=== PATIENT | female | born 1990 | race Caucasian/White ===

== ENCOUNTER 2016-10-07 02:42 | Emergency (ER) | payer SELFPAY ==
[2016-10-07 02:50] VITALS: BP 132/78
[2016-10-07] MEDS ORDERED: CYCLOBENZAPRINE HCL 10 MG TABLET PO ONE (03:06)
[2016-10-07] MEDS ORDERED: KETOROLAC TROMETHAMINE 60 MG/2 ML SDV IM ONE (03:06)
--- NOTE | 2016-10-07 03:10 | ER Document Report ---
ED General - General Chief Complaint: Low Back Pain Stated Complaint: BACK PAIN Notes: 26-year-old female presents with 2 days of vague lower back pain followed by an acute onset episode tonight in the middle the night going to the bathroom, mid lower back worse with movement. No radiation. No neuro symptoms. Not like her prior kidney stones. No fever no chills. Took Excedrin and came to the ED. TRAVEL OUTSIDE OF THE [place] IN LAST 30 DAYS: No - Related Data Allergies/Adverse Reactions: hydrocodone bitartrate [From Vicodin] Allergy (Intermediate, Verified 02/03/13 18:54) Hives codeine [Codeine] Adverse Reaction (Verified 06/02/13 06:29) Past Medical History - General Information source: Patient - Social History Smoking Status: Current Some Day Smoker Family History: None Patient has suicidal ideation: No Patient has homicidal ideation: No - Past Medical History Cardiac Medical History: Denies: Hx Heart Attack, Hx Hypertension Pulmonary Medical History: Denies: Hx Asthma Neurological Medical History: Denies: Hx Cerebrovascular Accident, Hx Seizures Renal/ Medical History: Denies: Hx Peritoneal Dialysis GI Medical History: Denies: Hx Hepatitis, Hx Hiatal Hernia, Hx Ulcer Musculoskeltal Medical History: Reports Hx Musculoskeletal Deformity, Reports Hx Musculoskeletal Trauma Infectious Medical History: Denies: Hx Hepatitis Past Surgical History: Reports: Hx Section, Hx Orthopedic Surgery - L/ R foot, Hx Tonsillectomy. Denies: Hx Mastectomy, Hx Open Heart Surgery, Hx Pacemaker - Immunizations Immunizations up to date: Yes Hx Diphtheria, Pertussis, Tetanus Vaccination: Yes Hx Pneumococcal Vaccination: 03/12/00 Review of Systems - Review of Systems Notes: REVIEW OF SYSTEMS GEN: Denies fever, chills, weight loss ENT: Denies sore throat, nasal discharge, ear pain EYES: Denies blurry vision, eye pain, discharge CV: Denies chest pain, palpitations, edema RESP: Denies cough, shortness of breath, wheezing GI: Denies abdominal pain, nausea, vomiting, diarrhea MSK: Back pain SKIN: Denies rash, skin lesions LYMPH: Denies swollen glands/lymph nodes NEURO: Denies headache, focal weakness or numbness, dizziness PSYCH: Denies depression, suicidal or homicidal ideation PHYSICAL EXAMINATION General: No acute distress, well-nourished Head: Atraumatic, normocephalic ENT: Mouth normal, oropharynx moist, no exudates or tonsillar enlargement Eyes: Conjunctiva normal, pupils equal, lids normal Ext: No deformities, no edema, normal range of motion in upper and lower ext Back: No CVA or midline TTP. Obvious discomfort with limited range of motion. Skin: No rash, warm Lymphatic: No lymphadeopathy noted Neuro: Awake, alert. Face symmetric. GCS 15. Intact plantar and dorsiflexion in both feet 5 out of 5 with normal sensation in legs. Physical Exam - Vital signs Vitals: Temp Pulse Resp BP Pulse Ox 97.6 F 92 18 132/78 H 97 10/07/16 02:48 10/07/16 02:48 10/07/16 02:48 10/07/16 02:48 10/07/16 02:48 Course - Re-evaluation Re-evalutation: 10/07/16 03:08 Acute back pain and spasm likely muscle sprain. No midline tenderness, red flags on history or physical to suggest nerve compression infection or need for imaging. Flexeril Toradol, discharged with Flexeril Motrin. Heat. - Vital Signs Vital signs: Temp Pulse Resp BP Pulse Ox 97.6 F 92 18 132/78 H 97 10/07/16 02:48 10/07/16 02:48 10/07/16 02:48 10/07/16 02:48 10/07/16 02:48 Discharge - Discharge Clinical Impression: Spasm of back muscles Condition: Good Disposition: HOME, SELF-CARE Instructions: Ice Packs ([facility]), Muscle Strain ([facility]) Prescriptions: Cyclobenzaprine HCl [Flexeril 10 mg Tablet] 10 mg PO TIDP PRN #15 tab PRN Reason: Ibuprofen [Motrin 600 Mg Tablet] 600 mg PO TID #15 tablet
== END 2016-10-07 03:21 | disposition home or self-care (01) ==
LOC: ER 02:42
DX: M62.830 Muscle spasm of back (principal); M54.5 Low back pain; F17.200 Nicotine dependence, unspecified, uncomplicated
CPT/HCPCS: 99283; 96372; J1885

== ENCOUNTER 2016-12-26 22:54 | Emergency (ER) | payer MEDICAID ==
[2016-12-26 23:32] VITALS: BP 124/62
[2016-12-26] MEDS ORDERED: ACETAMINOPHEN 325 MG TABLET PO ONE (23:32)
--- NOTE | 2016-12-27 00:09 | ER Document Report ---
HPI - HPI Pain Level: 2 Notes: Patient is a 26-year-old female who presents to the ED complaining of nasal congestion/discharge, feverish, dry nonproductive cough, body ache 2-3 days. Patient states that she still eating and drinking without any difficulties. She still urinating normally and having normal bowel movements. Patient states that she did recently stop smoking earlier this month. Patient did not get the flu vaccine yet. Patient has used some Tylenol with little relief. Denies any headache, neck pain, sore throat, chest pain, palpitations, syncope, shortness of breath, wheeze, dyspnea, abdominal pain, nausea/vomiting/diarrhea, urinary retention, dysuria, hematuria, or rash. - ROS Notes: REVIEW OF SYSTEMS: CONSTITUTIONAL : see hpi EENT: see hpi. No eye complaints. CARDIOVASCULAR: Denies chest pain. Denies palpitations or racing or irregular heart beat. Denies ankle edema. RESPIRATORY: see hpi GASTROINTESTINAL: Denies abdominal pain or distention. Denies nausea, vomiting , or diarrhea. Denies blood in vomitus, stools, or per rectum. Denies black, tarry stools. Denies constipation. GENITOURINARY: Denies difficulty urinating, painful urination, burning, frequency, blood in urine, or discharge. MUSCULOSKELETAL: Denies back or neck pain or stiffness. Denies joint pain or swelling. SKIN: Denies rash, lesions or sores. NEUROLOGICAL: Denies confusion or altered mental status. Denies passing out or loss of consciousness. Denies dizziness or lightheadedness. Denies headache. Denies weakness or paralysis or loss of use of either side. Denies problems with gait or speech. Denies sensory loss, numbness, or tingling. Denies seizures. PSYCHIATRIC: Denies anxiety or stress. Denies depression, suicidal ideation, or homicidal ideation. ALL OTHER SYSTEMS REVIEWED AND NEGATIVE. Dictation was performed using [employer] voice recognition software - REPRODUCTIVE Reproductive: DENIES: : - DERM Skin Color: Normal Past Medical History - Social History Smoking Status: Former Smoker Family History: None Patient has suicidal ideation: No Patient has homicidal ideation: No - Past Medical History Cardiac Medical History: Denies: Hx Heart Attack, Hx Hypertension Pulmonary Medical History: Denies: Hx Asthma Neurological Medical History: Denies: Hx Cerebrovascular Accident, Hx Seizures Renal/ Medical History: Denies: Hx Peritoneal Dialysis GI Medical History: Denies: Hx Hepatitis, Hx Hiatal Hernia, Hx Ulcer Musculoskeltal Medical History: Reports Hx Musculoskeletal Deformity, Reports Hx Musculoskeletal Trauma Infectious Medical History: Denies: Hx Hepatitis Past Surgical History: Reports: Hx Section, Hx Orthopedic Surgery - L/ R foot, Hx Tonsillectomy. Denies: Hx Mastectomy, Hx Open Heart Surgery, Hx Pacemaker - Immunizations Immunizations up to date: Yes Hx Diphtheria, Pertussis, Tetanus Vaccination: Yes Hx Pneumococcal Vaccination: 03/12/00 Vertical Provider Document - CONSTITUTIONAL Agree With Documented VS: Yes Notes: PHYSICAL EXAMINATION: GENERAL: Well-appearing, well-nourished and in no acute distress. A&Ox4 HEAD: Atraumatic, normocephalic. EYES: Pupils equal round and reactive to light, extraocular movements intact, sclera anicteric, conjunctiva are normal. ENT: EAC clear b/l. TM's intact b/l without erythema, fluid, or perforation. Nares patent and with clear discharge. oropharynx clear without exudates. Tonsils absent. Moist mucous membranes. No sinus tenderness. Uvula midline. No palatine shift. No tongue protrusion. NECK: Normal range of motion, supple without lymphadenopathy. No rigidity/ meningismus. LUNGS: Breath sounds clear to auscultation bilaterally and equal. No wheezes rales or rhonchi. HEART: Regular rate and rhythm without murmurs, rubs, gallops. ABDOMEN: Soft, nontender, nondistended abdomen. No guarding, no rebound. No masses appreciated. Normal bowel sounds present. No CVA tenderness bilaterally. Musculoskeletal: FROM to passive/active. Strength 5+/5. Extremities: No cyanosis, clubbing, or edema b/l. Peripheral pulses 2+. Capillary refill less than 3 seconds. NEUROLOGICAL: Cranial nerves grossly intact. Normal speech, normal gait. Normal sensory, motor exams PSYCH: Normal mood, normal affect. SKIN: Warm, Dry, normal turgor, no rashes or lesions noted. - INFECTION CONTROL TRAVEL OUTSIDE OF THE [place] IN LAST 30 DAYS: No - RESPIRATORY O2 Sat by Pulse Oximetry: 97 Course - Re-evaluation Re-evalutation: 12/27/16 01:29 Patient is an afebrile, well-hydrated, 26-year-old female who presents the ED with acute URI, suspect viral at this time. Vitals are stable. PE is otherwise unremarkable. CBC showed a mildly elevated white blood cell count without any shift. CMP was unremarkable. Rapid flu negative. Chest x-ray was also unremarkable for any acute pathology. Tylenol was given p.o. today. Low suspicion/risk for any sepsis, meningitis, respiratory compromise, ACS, PE, pneumothorax, pericarditis, dissection. Patient to monitor symptoms for any acute changes and seek medical attention if so. Conservative measures for symptoms. Recheck with your PCM in 2-3 days. Return to the ED with any worsening/concerning symptoms otherwise as reviewed in discharge. Patient is in agreement. - Vital Signs Vital signs: Temp Pulse Resp BP Pulse Ox 99.1 F 111 H 20 124/62 97 12/26/16 23:28 12/26/16 23:28 12/26/16 23:28 12/26/16 23:28 12/26/16 23:28 - Laboratory Result Diagrams: 12/27/16 00:02 12/27/16 00:32 Discharge - Discharge Clinical Impression: URI (upper respiratory infection) Qualifiers: URI type: unspecified URI Qualified Code(s): J06.9 - Acute upper respiratory infection, unspecified Condition: Stable Disposition: HOME, SELF-CARE Instructions: Viral Syndrome ([facility]), Upper Respiratory Illness ([facility]) Additional Instructions: Maintain adequate fluid intake Take meds as directed tylenol/ibuprofen as needed over the counter cold medication as needed for symptoms Humidified air may help F/u: with your PCM in 2-3 days for a recheck Return to the ED with any fever, worsening pain, chest pain, palpitations, syncope, worsening ALMANZAR, neck pain/stiffness, shortness of breath, wheezing, drooling, trouble swallowing/breathing, abdominal pain, n/v/d, rash, or worsening/concerning symptoms otherwise. Referrals: KAYLEN GONZALEZ PA-C [PHYSICIAN [employer]RARY TECHNICAL ASSISTANT] - 12/29/16
[2016-12-27 00:19] LABS: ABSOLUTE BASOPHILS # (AUTO) 0.1 10^3/uL (0.0-0.2); ABSOLUTE EOSINOPHILS # (AUTO) 0.3 10^3/uL (0.0-0.6); ABSOLUTE MONOCYTES (AUTO) 1.6 10^3/uL (0.1-1.4); ABSOLUTE NEUT (AUTO) 8.9 10^3/uL (1.7-8.2); BASOPHILS % (AUTO) 0.4 % (0-2); EOSINOPHILS % (AUTO) 2.2 % (0-6); HEMATOCRIT 39.2 % (36.0-47.0); HEMOGLOBIN 14.1 g/dL (12.0-15.5); HGB HCT DIFFERENCE 3.1; LYMPHOCYTES % (AUTO) 15.5 % (13-45); MEAN CORPUSCULAR HEMOGLOBIN 32.8 pg (27.0-33.4); MEAN CORPUSCULAR HGB CONC 36.1 g/dL (32.0-36.0); MEAN CORPUSCULAR VOLUME 91 fl (80-97); MONOCYTES % (AUTO) 12.5 % (3-13); RED CELL DISTRIBUTION WIDTH 13.1 % (11.5-14.0); SEGMENTED NEUTROPHILS % (AUTO) 69.4 % (42-78); WHITE BLOOD COUNT 12.9 10^3/uL (4.0-10.5)
[2016-12-27 00:56] LABS: ALANINE AMINOTRANSFERASE 39 U/L (9-52); ALBUMIN 4.2 g/dL (3.5-5.0); ALKALINE PHOSPHATASE 93 U/L (38-126); ANION GAP 14 (5-19); ASPARTATE AMINO TRANSFERASE 19 U/L (14-36); BILIRUBIN,DIRECT 0.3 mg/dL (0.0-0.4); BILIRUBIN,TOTAL 0.6 mg/dL (0.2-1.3); BLOOD UREA NITROGEN 18 mg/dL (7-20); CARBON DIOXIDE 19 mmol/L (22-30); CHLORIDE 108 mmol/L (98-107); CREATININE RESULT 0.73 mg/dL (0.52-1.25); GLUCOSE 102 mg/dL (75-110); POTASSIUM 4.3 mmol/L (3.6-5.0); SODIUM 140.8 mmol/L (137-145); TOTAL PROTEIN 6.9 g/dL (6.3-8.2)
--- NOTE | 2016-12-27 01:15 | RADIOLOGY REPORT (SQ) ---
EXAM DESCRIPTION: CHEST SINGLE VIEW COMPLETED DATE/TIME: 12/27/2016 1:07 am REASON FOR STUDY: CONGESTION COMPARISON: Chest x-ray 01/17/2016 EXAM PARAMETERS: NUMBER OF VIEWS: One view. TECHNIQUE: Single frontal radiographic view of the chest acquired. RADIATION DOSE: NA LIMITATIONS: None. FINDINGS: LUNGS AND PLEURA: No consolidation, pneumothorax or pleural effusion. MEDIASTINUM AND HILAR STRUCTURES: No masses. Contour normal. HEART AND VASCULAR STRUCTURES: Heart normal in size. Normal vasculature. BONES: No acute findings. HARDWARE: None in the chest. IMPRESSION: No acute radiographic finding in the chest. TECHNICAL DOCUMENTATION: JOB ID: [id number]
== END 2016-12-27 01:43 | disposition home or self-care (01) ==
LOC: ER 22:54
DX: J06.9 Acute upper respiratory infection, unspecified (principal); R05 Cough; J34.89 Other specified disorders of nose and nasal sinuses; R52 Pain, unspecified; Z87.891 Personal history of nicotine dependence
CPT/HCPCS: 99283; 36415; 85025; 80053; 87804; 71010; J3490

== ENCOUNTER 2017-01-26 07:39 | Day surgery (SDC) | payer MEDICAID ==
[2017-01-25 11:50] LABS: APPEARANCE,URINE CLEAR; BILIRUBIN,URINE NEGATIVE (NEGATIVE); GLUCOSE, URINE NEGATIVE (NEGATIVE); KETONES,URINE NEGATIVE (NEGATIVE); LEUKOCYTE ESTERASE,URINE NEGATIVE (NEGATIVE); NITRITE,URINE NEGATIVE (NEGATIVE); PROTEIN,URINE NEGATIVE (NEGATIVE); URINE SPECIFIC GRAVITY 1.023; UROBILINOGEN,URINE NEGATIVE mg/dL (<2.0)
[2017-01-25 11:54] LABS: ABSOLUTE EOSINOPHILS # (AUTO) 0.2 10^3/uL (0.0-0.6); ABSOLUTE LYMPHOCYTES (AUTO) 2.7 10^3/uL (0.5-4.7); ABSOLUTE MONOCYTES (AUTO) 0.8 10^3/uL (0.1-1.4); ABSOLUTE NEUT (AUTO) 3.5 10^3/uL (1.7-8.2); BASOPHILS % (AUTO) 0.4 % (0-2); EOSINOPHILS % (AUTO) 2.4 % (0-6); HEMATOCRIT 42.7 % (36.0-47.0); HEMOGLOBIN 14.8 g/dL (12.0-15.5); HGB HCT DIFFERENCE 1.7; MEAN CORPUSCULAR HEMOGLOBIN 31.7 pg (27.0-33.4); MEAN CORPUSCULAR HGB CONC 34.7 g/dL (32.0-36.0); MEAN CORPUSCULAR VOLUME 91 fl (80-97); MONOCYTES % (AUTO) 10.5 % (3-13); RED BLOOD COUNT 4.68 10^6/uL (3.72-5.28); RED CELL DISTRIBUTION WIDTH 12.8 % (11.5-14.0); SEGMENTED NEUTROPHILS % (AUTO) 48.7 % (42-78); WHITE BLOOD COUNT 7.2 10^3/uL (4.0-10.5)
[~2017-01-26 07:39] MED LIST: CEFAZOLIN 1 GM/D5W RTU 1 GM/50 ML RTUPB IV PRN; RINGERS SOLUTION,LACTATED 1,000 ML IV PRN
[2017-01-26] MEDS ORDERED: MIDAZOLAM 2 MG/2 ML INJ ONE (09:08)
[2017-01-26] MEDS ORDERED: KETAMINE HCL INJ 500 MG/10 ML VIAL ONE (09:08)
[2017-01-26] MEDS ORDERED: FENTANYL CITRATE INJ/PF 250 MCG/5 ML AMPULE ONE (09:08)
[2017-01-26] MEDS ORDERED: PROPOFOL INJ 200 MG/20 ML VIAL IV ONE (09:09)
[2017-01-26] MEDS ORDERED: LIDOCAINE 2% INJ (20 MG/ML) 20 ML MDV ONE (09:11)
[2017-01-26] MEDS ORDERED: BUPIVACAINE HCL 0.5 % INJ/PF 30 ML SDV ONE (09:12)
[2017-01-26] MEDS ORDERED: CEFAZOLIN 1 GM/D5W RTU 1 GM/50 ML RTUPB IV ONE (11:17)
--- NOTE | 2017-01-26 11:33 | [facility] OPERATIVE REPORT E ---
[facility] Operative Report NAME: ARELI DRAPER AGE: 27Y DATE OF SURGERY: 01/26/2017 ROOM: PREOPERATIVE DIAGNOSIS: Multilobular plantar fibromatoma, right foot. POSTOPERATIVE DIAGNOSIS: Multilobular plantar fibromatoma, right foot. PROCEDURE PERFORMED: Excision of multilobular plantar fibromatoma, right foot. SURGEON: BARI PERRY D.P.M. FINDINGS: 1. Intraoperative findings indicated multiple fibrous tumors originating from the medial and lateral band of the plantar fascia. 2. There was exuberant scar formation from previous surgical excision of the fibrous tumor. Intraoperative findings were confirmed clinically and via MRI. SPECIMENS REMOVED: Fibrous tumors with minimal amount of blood. PROCEDURE: With the patient laying in the dorsal recumbent position, the right foot and leg were prepped and draped in the usual standard sterile orthopedic manner after the local anesthesia was administered, which was a plantar block via posterior tibial nerve. After the anesthetic effect was accomplished, the right leg was elevated for approximately 2 minutes of time and the right ankle pneumatic tourniquet was inflated up to 215 mmHg after the blood was exsanguinated from the right foot. At this point, the right leg was brought to the level of the table. Attention was directed to the plantar aspect of the right foot. The incision was planned in such a way that the multiple fibrous tumors can be reached through the same incision. Next, a curvilinear incision was placed on the plantar aspect of the right foot. The initial incision was deepened. The superficial and deep subcutaneous tissues were dissected via blunt and sharp dissection. This dissection was carried until the plantar fascia and the fibrous tumors were brought into the surgical field. At this point, the *------* was established. The fibrous tumors were from the healthy plantar fascia and excised en toto. After the excision of the multiple fibrous tumors, the surgical area was evaluated and correction was extremely satisfactory. There were no signs of additional pathological tissue. At this point, the right ankle pneumatic tourniquet was deflated. Circulation to the right foot returned to normal immediately as the normal digital color and temperature became apparent. Next, the surgical site was irrigated copious amounts of sterile saline solution. After that, the subcutaneous tissues from deep to superficial were closed with 3-0 Vicryl. The skin edges were coapted with 4-0 nylon using continuous interlock stitch. Betadine compression dressing was applied around the right foot followed with an WILFRED bandage and a surgical shoe. This patient tolerated all surgical procedures very well and left the operating room with stable vital signs and in good condition. Patient was taken to the recovery room alert, conscious, and oriented. This patient was sent home with instructions for postoperative care at home. Pain medicine and antibiotics were given to the patient and patient was instructed how to take the medications. Patient was allowed to get back to a regular diet. Patient was strongly advised not to bear any weight on the surgical foot. Followup appointment was set in 48 hours in my clinic. DICTATING PHYSICIAN: BARI PERRY D.P.M. [id number] PHY#: [id number] ID: [id number] JOB#: [id number] ACCT: [id number] cc:BARI PERRY D.P.M. >
== END 2017-01-26 11:57 | disposition home or self-care (01) ==
LOC: SC 07:39
PROVIDERS: ATTEND Podiatrist Foot & Ankle Surgery
PROC: 0JBQ0ZZ Excision of Right Foot Subcutaneous Tissue and Fascia, Open Approach (ICD-10-PCS; principal; 2017-01-26 08:45)
DX: M72.2 Plantar fascial fibromatosis (principal); Z88.8 Allergy status to other drugs, medicaments and biological substances; Z79.899 Other long term (current) drug therapy
CPT/HCPCS: 36415; 85025; 81001; 88304 ×2; 28060; J2250; J3490 ×2; J0690; J3010; J2704; 1470

== ENCOUNTER 2018-06-19 20:19 | Emergency (ER) | payer MEDICAID ==
--- NOTE | 2018-06-19 22:45 | RADIOLOGY REPORT (SQ) ---
EXAM DESCRIPTION: [facility]Lex: CT HEAD WITHOUT IV CONTRAST CLINICAL HISTORY: 28 years Female; head ache TECHNIQUE: Noncontrast CT head. All CT scans at this facility use dose modulation, iterative reconstruction, and/or weight based dosing when appropriate to reduce radiation dose to as low as reasonably achievable. COMPARISON: None. CT 06/02/2013 FINDINGS: Sotelo matter, white matter, ventricles, and cisterns are within normal limits. No acute hemorrhage or mass effect. There is moderate mucosal thickening in the left maxillary sinus, with minimal fluid. Mild mucosal thickening is also noted in the right maxillary sinus, without fluid. Other sinuses are clear. Mastoids are clear. Visualized portions of the calvarium are within normal limits. IMPRESSION: 1. No acute intracranial findings. 2. Left maxillary sinusitis
== END 2018-06-20 01:30 | disposition left against medical advice (07) ==
LOC: ER 20:19
DX: Z53.21 Procedure and treatment not carried out due to patient leaving prior to being seen by health care provider (principal)
CPT/HCPCS: 70450

== ENCOUNTER 2019-04-08 09:04 | Emergency (ER) | payer SELFPAY ==
[2019-04-08 09:58] VITALS: BP 140/88
--- NOTE | 2019-04-08 10:15 | ER Document Report ---
ED Medical Screen (RME) - General TRAVEL OUTSIDE OF THE [place] IN LAST 30 DAYS: No - Related Data Home Medications: denies <DAINA HAMILTON A - Last Filed: 04/08/19 10:13> <CJFLY F - Last Filed: 04/08/19 11:44> - General Chief Complaint: Facial Swelling Stated Complaint: FACIAL SWELLING Time Seen by Provider: 04/08/19 10:08 Primary Care Provider: PATRICK ANDRES [Primary Care Provider] - Follow up as needed - HPI Notes: 04/08/19 10:13 29-year-old female presents emergency room for evaluation of left facial swelling that is become progressively worse over the last 4 days. Patient has not tried any [id number] medications denies any blurred vision double vision or loss of vision. Patient thinks she may have been bitten by something but she cannot recall. Reports facial tenderness to palpation. Worse with time has not tried any thing to try make it better. Denies any trismus. I have greeted and performed a rapid initial assessment of this patient. A comprehensive ED assessment and evaluation of the patient, analysis of test results and completion of the medical decision making process will be conducted by additional ED providers. PHYSICAL EXAMINATION: GENERAL: Well-appearing, well-nourished and in no acute distress. HEAD: Atraumatic, normocephalic. Left facial swelling EYES: Pupils equal round extraocular movements intact, conjunctiva are normal. Left upper eyelid partially open. NECK: Normal range of motion. Left cervical lymphadenopathy CV: s1, s2 regular LUNGS: No respiratory distress Musculoskeletal: Normal range of motion NEUROLOGICAL: Normal speech, normal gait. SKIN: Warm, Dry, normal turgor, no rashes or lesions noted. Erythema noted to left orbital area 04/08/19 10:15 (DAINA HAMILTON) - Related Data Allergies/Adverse Reactions: codeine [Codeine] Adverse Reaction (Verified 04/08/19 10:12) Generalized rash Past Medical History - Social History Chew tobacco use (# tins/day): No Frequency of alcohol use: None Drug Abuse: None - Past Medical History Cardiac Medical History: Denies: Hx Heart Attack, Hx Hypertension Pulmonary Medical History: Denies: Hx Asthma Neurological Medical History: Denies: Hx Cerebrovascular Accident, Hx Seizures Renal/ Medical History: Denies: Hx Peritoneal Dialysis GI Medical History: Denies: Hx Hepatitis, Hx Hiatal Hernia, Hx Ulcer Musculoskeltal Medical History: Reports Hx Musculoskeletal Deformity, Reports Hx Musculoskeletal Trauma Infectious Medical History: Denies: Hx Hepatitis Past Surgical History: Reports: Hx Section, Hx Orthopedic Surgery - L/R foot, Hx Tonsillectomy. Denies: Hx Hysterectomy, Hx Mastectomy, Hx Open Heart Surgery, Hx Pacemaker - Immunizations Immunizations up to date: Yes Hx Diphtheria, Pertussis, Tetanus Vaccination: Yes <DAINA HAMILTON A - Last Filed: 04/08/19 10:13> Physical Exam - Vital signs Vitals: Temp Pulse Resp BP Pulse Ox 98.5 F 77 18 140/88 H 100 04/08/19 09:57 04/08/19 09:57 04/08/19 09:57 04/08/19 09:57 04/08/19 09:57 Course - Laboratory Result Diagrams: 04/08/19 10:55 04/08/19 10:55 <FLY CORONA - Last Filed: 04/08/19 11:44> - Vital Signs Vital signs: Temp Pulse Resp BP Pulse Ox 98.5 F 77 18 140/88 H 100 04/08/19 09:57 04/08/19 09:57 04/08/19 09:57 04/08/19 09:57 04/08/19 09:57 Doctor's Discharge <DAINA HAMILTON A - Last Filed: 04/08/19 10:13> <FLY CORONA - Last Filed: 04/08/19 11:44> - Discharge Clinical Impression: Facial swelling Condition: Good Disposition: HOME, SELF-CARE Instructions: MRSA Cellulitis ([facility]) Additional Instructions: return to ER for worse swelling or headache Prescriptions: Doxycycline Hyclate 100 mg PO BID #20 tablet. Referrals: LOCALMD,NO [Primary Care Provider] - Follow up in 3-5 days (Your care or emergency room if not better)
[2019-04-08 11:19] LABS: ABSOLUTE EOSINOPHILS # (AUTO) 0.1 10^3/uL (0.0-0.6); ABSOLUTE LYMPHOCYTES (AUTO) 2.5 10^3/uL (0.5-4.7); ABSOLUTE MONOCYTES (AUTO) 0.6 10^3/uL (0.1-1.4); ABSOLUTE NEUT (AUTO) 3.6 10^3/uL (1.7-8.2); BASOPHILS % (AUTO) 0.4 % (0-2); HEMATOCRIT 43.2 % (36.0-47.0); LYMPHOCYTES % (AUTO) 36.2 % (13-45); MEAN CORPUSCULAR HEMOGLOBIN 31.4 pg (27.0-33.4); MEAN CORPUSCULAR HGB CONC 34.7 g/dL (32.0-36.0); MEAN CORPUSCULAR VOLUME 91 fl (80-97); MONOCYTES % (AUTO) 9.3 % (3-13); PLATELET COUNT 232 10^3/uL (150-450); RED BLOOD COUNT 4.77 10^6/uL (3.72-5.28); RED CELL DISTRIBUTION WIDTH 13.2 % (11.5-14.0); SEGMENTED NEUTROPHILS % (AUTO) 52.1 % (42-78); TOTAL CELLS COUNTED % (AUTO) 100 %; WHITE BLOOD COUNT 6.8 10^3/uL (4.0-10.5)
[2019-04-08 11:41] LABS: ALBUMIN 4.4 g/dL (3.5-5.0); ALKALINE PHOSPHATASE 83 U/L (38-126); ANION GAP 8 (5-19); ASPARTATE AMINO TRANSFERASE 18 U/L (14-36); BILIRUBIN,TOTAL 0.5 mg/dL (0.2-1.3); BLOOD UREA NITROGEN 8 mg/dL (7-20); C-REACTIVE PROTEIN < 5.0 mg/L (<10.0); CALCIUM 9.6 mg/dL (8.4-10.2); CARBON DIOXIDE 22 mmol/L (22-30); CHLORIDE 106 mmol/L (98-107); GLUCOSE 93 mg/dL (75-110); POTASSIUM 4.2 mmol/L (3.6-5.0); TOTAL PROTEIN 7.2 g/dL (6.3-8.2)
--- NOTE | 2019-04-08 12:04 | ER Document Report ---
ED General - General Chief Complaint: Facial Swelling Stated Complaint: FACIAL SWELLING Time Seen by Provider: 04/08/19 10:08 Primary Care Provider: MCKENNA,PATRICK [Primary Care Provider] - Follow up in 3-5 days (Your care or emergency room if not better) Notes: Healthy 29-year-old female presents with swelling and pain of her left eyebrow and face radiating to her left ear and jaw associated with some left neck "swoll en glands" for about 3 days. Initially started with a bug bite to the eyebrow. Got slightly red and then had some swelling below the left eye. No facial pain in the maxillary area nose pain nasal discharge fever. Mild headache on the left side. Taken any medication or done anything at home for this. TRAVEL OUTSIDE OF THE [place] IN LAST 30 DAYS: No - Related Data Allergies/Adverse Reactions: codeine [Codeine] Adverse Reaction (Verified 04/08/19 10:12) Generalized rash Home Medications: denies Past Medical History - Social History Smoking Status: Never Smoker Chew tobacco use (# tins/day): No Frequency of alcohol use: None Drug Abuse: None Family History: None Patient has suicidal ideation: No Patient has homicidal ideation: No - Past Medical History Cardiac Medical History: Denies: Hx Heart Attack, Hx Hypertension Pulmonary Medical History: Denies: Hx Asthma Neurological Medical History: Denies: Hx Cerebrovascular Accident, Hx Seizures Renal/ Medical History: Denies: Hx Peritoneal Dialysis GI Medical History: Denies: Hx Hepatitis, Hx Hiatal Hernia, Hx Ulcer Musculoskeletal Medical History: Reports Hx Musculoskeletal Deformity, Reports Hx Musculoskeletal Trauma Infectious Medical History: Denies: Hx Hepatitis Past Surgical History: Reports: Hx Section, Hx Orthopedic Surgery - L/R foot, Hx Tonsillectomy. Denies: Hx Hysterectomy, Hx Mastectomy, Hx Open Heart Surgery, Hx Pacemaker - Immunizations Immunizations up to date: Yes Hx Diphtheria, Pertussis, Tetanus Vaccination: Yes Hx Pneumococcal Vaccination: 03/12/00 Review of Systems - Review of Systems Notes: REVIEW OF SYSTEMS GEN: Denies fever, chills, weight loss ENT: Face pain ear pain EYES: Denies blurry vision, eye pain, discharge CV: Denies chest pain, palpitations, edema RESP: Denies cough, shortness of breath, wheezing GI: Denies abdominal pain, nausea, vomiting, diarrhea MSK: Denies joint pain/swelling, edema, SKIN: Denies rash, skin lesions LYMPH: Denies swollen glands/lymph nodes NEURO: Denies headache, focal weakness or numbness, dizziness PSYCH: Denies depression, suicidal or homicidal ideation PHYSICAL EXAMINATION General: No acute distress, well-nourished Head: Atraumatic, normocephalic ENT: Red papule about 5 x 6 mm in and around the left eyebrow, with no tenderness or drainage. Very faint infraorbital swelling without discoloration. Normal tympanic membrane, jaw, and face. Trismus. Eyes: Conjunctiva normal, pupils equal, lids normal Neck: No JVD, supple, no guarding CVS: Normal rate, regular rhythm, no murmurs Resp: No resp distress, equal and normal breath sounds bilaterally GI: Nondistended, soft, no tenderness to palpation, no rebound or guarding Ext: No deformities, no edema, normal range of motion in upper and lower ext Back: No CVA or midline TTP Skin: No rash, warm Lymphatic: Small lymphadenopathy left submandibular, tender Neuro: Awake, alert. Face symmetric. GCS 15. Physical Exam - Vital signs Vitals: Temp Pulse Resp BP Pulse Ox 98.5 F 77 18 140/88 H 100 04/08/19 09:57 04/08/19 09:57 04/08/19 09:57 04/08/19 09:57 04/08/19 09:57 - HEENT Visual acuity- Right eye: 20/20 Visual acuity- Left eye: 20/20 Visual acuity- Both eyes: 20/20 Corrective lenses worn: Yes Course - Re-evaluation Re-evalutation: 04/08/19 12:03 Low-grade facial infection versus bug bite/histamine response No clear signs of severe cellulitis, cavernous sinus thrombosis intracranial infection or anything necrotizing The patient has no primary care so when I suggested Benadryl and ice with with a waiting period before antibiotics she would rather just do both Prescribed antibiotics, and vitals normal. Labs were ordered at [facility]. Patient was talking with tri[facility] about imaging but I do not think this is nec essary. I have discussed with the patient there likely diagnosis, aftercare plan, follow-up plans and my usual and customary return precautions. They verbalized understanding of this. - Vital Signs Vital signs: Temp Pulse Resp BP Pulse Ox 98.5 F 77 18 140/88 H 100 01/28/20 09:57 04/08/19 09:57 04/08/19 09:57 04/08/19 09:57 04/08/19 09:57 - Laboratory Result Diagrams: 04/08/19 10:55 04/08/19 10:55 Laboratory results interpreted by me: 04/08/19 10:55 Sodium 136.4 L Discharge - Discharge Clinical Impression: Facial swelling Condition: Good Disposition: HOME, SELF-CARE Instructions: MRSA Cellulitis ([facility]) Additional Instructions: return to ER for worse swelling or headache Prescriptions: Doxycycline Hyclate 100 mg PO BID #20 tablet. Referrals: LOCALMD,NO [Primary Care Provider] - Follow up in 3-5 days (Your care or emergency room if not better)
== END 2019-04-08 11:00 | disposition home or self-care (01) ==
LOC: ER 09:04
DX: R22.0 Localized swelling, mass and lump, head (principal); R51 Headache; H92.02 Otalgia, left ear; R68.84 Jaw pain; R22.1 Localized swelling, mass and lump, neck
CPT/HCPCS: 36415; 80053; 81025; 83605; 85025; 86140; 99283